=== PATIENT | male | born 1985 | race Asian ===

== ENCOUNTER 2018-07-07 21:58 | Emergency (ER) | payer MEDICAID ==
[~2018-07-07] VITALS: Ht 167.6 cm; Wt 93.8 kg
[~2018-07-07 21:58] MED LIST: TRAM50TA2 PO
[2018-07-07 22:17] VITALS: BP 151/89
[2018-07-08] MEDS ORDERED: ACET-3068 PO (00:29)
[2018-07-08] MEDS ORDERED: ibuprofen tablet 400 MG TABLET PO ONE (00:30)
[2018-07-08] MEDS ORDERED: CEPH500C5 PO (00:31)
== END 2018-07-08 00:57 | disposition home or self-care (01) ==
LOC: ER 21:59
DX: M79.672 Pain in left foot (principal); M25.475 Effusion, left foot; G89.29 Other chronic pain; F17.200 Nicotine dependence, unspecified, uncomplicated; Z90.89 Acquired absence of other organs
CPT/HCPCS: 73630; 99284; L3260

== ENCOUNTER 2018-07-15 19:55 | Emergency (ER) | payer MEDICAID ==
[~2018-07-15] VITALS: Ht 167.6 cm; Wt 85.0 kg
[~2018-07-15 19:55] MED LIST changes: +ACET-3068 PO; +CEPH500C5 PO
[2018-07-15 21:28] LABS: BASOPHILS # (AUTO) 0.1 X10'3 (0-0.2); EOSINOPHILS # (AUTO) 0.6 X10'3 (0-0.9); MEAN CORPUSCULAR HEMOGLOBIN 19.3 PG (27.0-31.0); MEAN PLATELET VOLUME 7.8 FL (7.4-10.4); MONOCYTES # (AUTO) 1.1 X10'3 (0-0.9)
[2018-07-15 21:33] LABS: BASOPHILS % (AUTO) 0.6 % (0-1); HEMATOCRIT 43.4 % (42.0-52.0); HEMOGLOBIN 13.5 g/dl (14.0-17.9); LYMPHOCYTES # (AUTO) 3.1 X10'3 (1.1-4.8); LYMPHOCYTES % (AUTO) 24.7 % (21-51); MEAN CORPUSCULAR HGB CONC 31.1 % (33.0-36.5); MONOCYTES % (AUTO) 9.2 % (2-12); NEUTROPHILS # (AUTO) 7.5 X10'3 (1.8-7.7); NEUTROPHILS % (AUTO) 60.5 % (42-75); PLATELET COUNT 408 X10'3 (140-440); RED BLOOD COUNT 7.01 X10'6 (4.70-6.10); RED CELL DISTRIBUTION WIDTH 15.3 % (11.5-14.5); WHITE BLOOD COUNT 12.4 X10'3 (4.5-11.0)
[2018-07-15 21:42] LABS: ALANINE AMINOTRANSFERASE 102 U/L (12-78); ALBUMIN 4.1 G/DL (3.4-5.0); ALBUMIN/GLOBULIN RATIO 1.1 (1.1-1.5); ALKALINE PHOSPHATASE 103 IU/L (46-116); ANION GAP 9 (8-16); ASPARTATE AMINO TRANSFERASE 39 U/L (10-37); BILIRUBIN,TOTAL 1.3 MG/DL (0.1-1.0); BLOOD UREA NITROGEN 14 MG/DL (7-18); BUN/CREATININE RATIO 16.9 (5.4-32.0); CALCIUM 9.1 MG/DL (8.5-10.1); CHLORIDE 105 MMOL/L (99-107); CREATININE 0.83 MG/DL (0.60-1.10); GLUCOSE 84 MG/DL (70-104); POTASSIUM 3.9 MMOL/L (3.5-5.1); SODIUM 142 MMOL/L (135-145); TOTAL CARBON DIOXIDE 27.7 MMOL/L (24-32); eGFR > 90 ML/MIN
[2018-07-15] MEDS ORDERED: predniSONE 20 mg tablet PO ONE (22:20)
[2018-07-15] MEDS ORDERED: PRED50TA PO (22:23)
[2018-07-15 22:44] VITALS: BP 123/71
== END 2018-07-15 22:49 | disposition home or self-care (01) ==
LOC: ER 19:56
DX: M10.9 Gout, unspecified (principal); M79.672 Pain in left foot; G89.29 Other chronic pain; Z90.89 Acquired absence of other organs; Z79.899 Other long term (current) drug therapy
CPT/HCPCS: 36415; 80053; 84550; 85025; 85651; 99284; J7512

== ENCOUNTER 2019-05-31 22:37 | Emergency (ER) | payer MEDICAID ==
[~2019-05-31] VITALS: Ht 167.6 cm; Wt 90.9 kg
[~2019-05-31 22:37] MED LIST changes: -ACET-3068 PO; +PRED50TA PO
[2019-05-31 22:46] VITALS: BP 149/93
[2019-06-01] MEDS ORDERED: ketorolac tromethamine 15mg/ml inj. IM ONE (00:25)
== END 2019-06-01 01:39 | disposition home or self-care (01) ==
LOC: ER 22:38
DX: S39.012A Strain of muscle, fascia and tendon of lower back, initial encounter (principal); G89.29 Other chronic pain; Z90.89 Acquired absence of other organs; Z98.890 Other specified postprocedural states; Z79.899 Other long term (current) drug therapy; X58.XXXA Exposure to other specified factors, initial encounter; Y93.89 Activity, other specified; Y92.89 Other specified places as the place of occurrence of the external cause; Y99.8 Other external cause status
CPT/HCPCS: 96372; 99283; J1885

== ENCOUNTER 2023-03-25 21:23 | Emergency (ER) | payer MEDICAID ==
[~2023-03-25] VITALS: Ht 170.2 cm; Wt 95.5 kg
[~2023-03-25 21:23] MED LIST changes: -CEPH500C5 PO
[2023-03-25] MEDS ORDERED: ondansetron 4mg rapidly disintigrating tab PO ONE (23:40)
[2023-03-25] MEDS ORDERED: cephalexin 250mg capsule PO ONE (23:40)
[2023-03-25] MEDS ORDERED: HYDROcodone/acetaminophen 10/325mg tab PO ONE (23:40)
[2023-03-25] MEDS ORDERED: CEPH250T PO (23:49)
[2023-03-26 00:13] VITALS: BP 187/94
== END 2023-03-26 00:17 | disposition home or self-care (01) ==
LOC: ER 21:23
DX: L03.032 Cellulitis of left toe (principal); L03.031 Cellulitis of right toe; G89.29 Other chronic pain; M54.9 Dorsalgia, unspecified; Z79.899 Other long term (current) drug therapy
CPT/HCPCS: 10060; 99284